=== PATIENT | male | born 1940 | race Caucasian/White ===

== ENCOUNTER 2020-07-31 00:01 | Inpatient (IN) ==
[2020-07-31] MEDS ORDERED: Ondansetron 4 MG/2 ML VIAL IVP PRN (02:09)
[2020-07-31] MEDS ORDERED: Acetaminophen 325 MG TABLET PO PRN (02:09)
[2020-07-31] MEDS ORDERED: Naloxone 0.4 MG/ML INJ IVP PRN ×2 (02:09→03:15)
[2020-07-31] MEDS ORDERED: 0.9 % Sodium Chloride 1,000 ML IVC SCH (02:15)
[2020-07-31] MEDS ORDERED: 0.9 % Sodium Chloride 250 ML IVC SCH ×2 (02:30→05:15)
[2020-07-31 03:41] LABS: Basophils % 0.3 %; Hemoglobin 6.6 g/dL (12.9-16.9); Mean Corpuscular Volume 102.2 fL (83.0-100.0); Red Cell Distribution Width 16.7 % (11.5-14.5)
[2020-07-31 03:42] LABS: Hematocrit 22.8 % (37.5-50.1); Immature Granulocytes % 1.6 % (0-4); Immature Platelets 4.6 % (1.1-6.1); Lymphocytes # 0.9 K/mcL (0.6-4.6); Lymphocytes % 22.6 %; Mean Corpuscular HGB Conc 28.9 g/dL (31.6-35.5); Mean Corpuscular Hemoglobin 29.6 pg (28.0-33.3); Monocytes # 0.2 K/mcL (0.0-1.3); Monocytes % 4.9 %; Neutrophils # 2.7 K/mcL (1.6-8.9); Nucleated Red Blood Cells 0.5 /100 WBC (0); Red Blood Count 2.23 M/mcL (4.19-5.50); Segmented Neutrophils % 69.6 %; White Blood Count 3.9 K/mcL (4.3-11.1)
[2020-07-31 03:43] LABS: Platelet Count 57 K/mcL (140-400)
[2020-07-31 03:47] LABS: Prothrombin Time 12.1 Seconds (9.4-12.1)
[2020-07-31 04:00] LABS: Calcium 8.1 mg/dL (8.6-10.3); Potassium 4.7 mEq/L (3.5-5.1)
[2020-07-31] MEDS ORDERED: Dextrose Gel 15 GM/37.5 ML TUBE PO PRN ×2 (04:04)
[2020-07-31] MEDS ORDERED: D5% in Water 1,000 ML IVC PRN (04:04)
[2020-07-31] MEDS ORDERED: *HR* Dextrose 50 % in Water (Vial) 50 ML VIAL IVP PRN (04:04)
[2020-07-31 04:14] LABS: Thyroid Stimulating Hormone 2.241 mcIU/mL (0.340-5.600)
[2020-07-31 04:24] LABS: Folate 7.9 ng/mL (3.0-16.0)
[2020-07-31 04:28] LABS: Vitamin B12 > 1500 pg/mL (250-1100)
[2020-07-31] MEDS: Insulin LISPRO 300 UNITS/3 ML VIAL SUBQ SCH ×3 (06:06→17:29)
[2020-07-31] MEDS ORDERED: 0.9 % Sodium Chloride 1,000 ML IVC ONE (07:43)
[2020-07-31 09:47] LABS: Hemoglobin 7.4 g/dL (12.9-16.9)
[2020-07-31 10:09] LABS: Albumin 3.1 g/dL (3.5-5.7); Albumin/Globulin Ratio 1.3 (1.1-2.2); Bilirubin,Direct 0.1 mg/dL (0.0-0.2); Bilirubin,Indirect 0.3 mg/dL (0.0-1.0); Bilirubin,Total 0.4 mg/dL (0.3-1.0); Globulin 2.4 g/dL (2.4-3.5); Total Protein 5.5 g/dL (6.4-8.9)
[2020-07-31 11:03] LABS: Hematocrit 24.8 % (37.5-50.1); Hemoglobin 7.6 g/dL (12.9-16.9)
[2020-07-31 11:09] LABS: Fibrinogen 533 mg/dL (169-393)
[2020-07-31 11:10] LABS: D-Dimer 379 ng/mLFEU (0-500)
[2020-07-31] MEDS ORDERED: *HR* Propofol 200 MG/20 ML VIAL IVP ONE (12:12)
[2020-07-31] MEDS ORDERED: Lidocaine -MPF 2% 5 ML VIAL ONE (12:12)
[2020-07-31] MEDS ORDERED: *HR* Etomidate 40 MG/20 ML VIAL IVP ONE (12:24)
[2020-07-31] MEDS ORDERED: *HR* EPINEPHrine 1 MG/10 ML SYRINGE INTRATRACH PRN (12:43)
[2020-07-31] MEDS ORDERED: Pantoprazole 40 MG VIAL IVP ONE (12:59)
[2020-07-31] MEDS: Pantoprazole 40 MG in 0.9 % Sodium Chloride Mini Bag 100 ML IVC SCH ×2 (13:37→20:07)
[2020-07-31] MEDS ORDERED: Perflutren Lipid Microsphere 1.3 ML in 0.9 % Sodium Chloride 8.7 ML IVP PRN (15:39)
[2020-07-31 15:50] LABS: Hepatitis B Surface Antigen Nonreactive (Nonreactive)
[2020-07-31 16:19] LABS: Hepatitis B Core IgM Nonreactive (Nonreactive)
[2020-07-31 16:20] LABS: Hepatitis A Antibody IgM Nonreactive (Nonreactive); Hepatitis C Virus Antibody Nonreactive (Nonreactive)
[2020-07-31] MEDS ORDERED: Pantoprazole 40 MG VIAL IVP SCH (18:00)
[2020-07-31 19:34] LABS: Hematocrit 26.1 % (37.5-50.1); Hemoglobin 7.6 g/dL (12.9-16.9)
[2020-07-31] MEDS ORDERED: Albuterol 2.5 MG/3 ML NEBULIZER IH PRN ×2 (23:27→23:42)
[2020-08-01 00:58] LABS: Hematocrit 25.4 % (37.5-50.1); Hemoglobin 7.4 g/dL (12.9-16.9)
[2020-08-01] MEDS: Pantoprazole 40 MG in 0.9 % Sodium Chloride Mini Bag 100 ML IVC SCH ×4 (01:08→11:10)
[2020-08-01] MEDS: Insulin LISPRO 300 UNITS/3 ML VIAL SUBQ SCH ×3 (02:24→11:37)
[2020-08-01 03:59] LABS: Basophils % 0.3 %; Hematocrit 25.4 % (37.5-50.1); Hemoglobin 7.5 g/dL (12.9-16.9); Immature Granulocytes % 1.4 % (0-4); Immature Platelets 5.8 % (1.1-6.1); Lymphocytes % 28.5 %; Mean Corpuscular HGB Conc 29.5 g/dL (31.6-35.5); Mean Corpuscular Hemoglobin 29.8 pg (28.0-33.3); Mean Corpuscular Volume 100.8 fL (83.0-100.0); Mean Platelet Volume 11.7 fL (9.4-12.4); Monocytes # 0.2 K/mcL (0.0-1.3); Monocytes % 6.8 %; Nucleated Red Blood Cells 1.7 /100 WBC (0); Red Blood Count 2.52 M/mcL (4.19-5.50); Red Cell Distribution Width 17.1 % (11.5-14.5)
[2020-08-01 04:03] LABS: Lymphocytes # 0.9 K/mcL (0.6-4.6); Neutrophils # 1.9 K/mcL (1.6-8.9); Platelet Count 51 K/mcL (140-400)
[2020-08-01 04:15] LABS: Calcium 8.3 mg/dL (8.6-10.3); Potassium 4.6 mEq/L (3.5-5.1)
[2020-08-01] MEDS ORDERED: Saline Nasal Spray 44 ML BOTTLE NS PRN (06:28)
[2020-08-01] MEDS ORDERED: Ringers Solution, Lactated 1,000 ML IVC ONE ×2 (07:37→14:04)
[2020-08-01 08:25] LABS: Bacteria,Urine Few per hpf (None-Few); Bilirubin,Urine Negative (Negative); Blood,Urine Negative (Negative); Clarity,Urine Clear (Clear); Color,Urine Light-Yellow (Yellow); Glucose,Urine (UA) Normal (Normal); Hyaline Casts,Urine Few per lpf (None Seen); Ketones,Urine Negative (Negative); Leukocyte Esterase,Urine Small (Negative); Nitrite,Urine Negative (Negative); Protein,Urine Trace mg/dL (Neg-Trace); RBC,Urine 0-3 per hpf (0-3); Specific Gravity,Urine 1.018 (1.010-1.025); Squamous Epithelial Cell,Urine Few per hpf (None-Few); Urobilinogen,Urine Normal (Normal)
[2020-08-01 08:57] LABS: Protein/Creatinine Ratio,Urine 0.17 mg/mg (0.00-0.20); Sodium, Urine 29.9 mEq/L
[2020-08-01] MEDS ORDERED: Aspirin Enteric Coated 81 MG Tablet PO SCH (09:00)
[2020-08-01] MEDS ORDERED: GI Cocktail 40 ML EACH PO ONE (09:53)
[2020-08-01] MEDS ORDERED: Morphine Sulfate Oral CONC 10 MG/0.5 ML ORAL.SYG SL PRN (10:37)
[2020-08-01] MEDS ORDERED: Saliva Stimulant 44.3ml BOTTLE PO PRN (10:38)
[2020-08-01] MEDS ORDERED: *HR* HYDROmorphone (PF) 1 MG/ML SYRINGE IVP PRN ×3 (12:27→22:26)
[2020-08-01] MEDS ORDERED: Ringers Solution, Lactated 1,000 ML ONE ×2 (14:01→15:25)
[2020-08-01] MEDS ORDERED: Cefepime HCl 1,000 MG in Water for inj. (sterile) 10 ML IVP SCH (15:00)
[2020-08-01] MEDS ORDERED: Piperacillin/Tazobactam 3.375 GM in 0.9 % Sodium Chloride Mini Bag 100 ML IVPB SCH (16:00)
[2020-08-01] MEDS ORDERED: *HR* LORazepam Oral Conc 2 MG/ML SL PRN ×2 (16:20→16:38)
[2020-08-01] MEDS ORDERED: Haloperidol Lactate 5 MG/ML VIAL IVP PRN (16:39)
[2020-08-02 00:50] VITALS: BP 54/31
[2020-08-02 23:32] LABS: QuantiFERON Mitogen minus NIL 8.48 IU/mL
[2020-08-03 06:24] LABS: QuantiFERON NIL 0.01 IU/mL; QuantiFERON-TB Gold In-Tube NEGATIVE (Negative)
== END 2020-08-02 02:26 | disposition expired | DRG 871 ==
LOC: 2NENU → SUATTDRO 01:38 → 2ANU 08-02 00:22
PROVIDERS: ADMIT Student in an Organized Health Care Education/Training Program; ATTEND Internal Medicine
PROC: ENDOEBX (2020-07-31 13:45)